=== PATIENT | male | born 1970 | race Caucasian/White ===

== ENCOUNTER 2022-12-09 16:56 | Outpatient (REF) | payer SELFPAY ==
[2022-12-09 21:41] LABS: HCT 43.4 % (40.0-50.0); HGB 14.8 g/dL (13.5-17.5); MCH 33.4 pg (27.0-33.0); MCHC 34.1 % (32.0-36.0); MCV 98 fL (80-95); MPV 9.8 fL (8.0-11.0); Platelet Count 471 10^3/uL (130-400); RBC 4.43 10^6/uL (4.36-5.78); RDW 12.6 % (11.8-14.1); RDW-SD 46.1 fL; WBC 10.97 10^3/uL (4.4-10.8)
[2022-12-09 21:55] LABS: Hemoglobin A1C 5.6 % (<5.7)
[2022-12-09 22:04] LABS: ALT 30 U/L (16-63); AST 23 U/L (15-37); Albumin 3.7 g/dL (3.4-5.0); Alkaline Phosphatase 91 U/L (46-116); Anion Gap 7.6 mmol/L (3-11); BUN 14 mg/dL (7-18); Bilirubin, Total 0.6 mg/dL (0.2-1.0); CO2 27.4 mmol/L (21.0-32.0); CREATININE 1.1 mg/dL (0.70-1.30); Calcium 8.9 mg/dL (8.5-10.1); Calculated LDL 93 mg/dL (<100); Chloride 106 mmol/L (98-107); Cholesterol 185 mg/dL (<200); Estimated GFR 81.28 (mL/min/1.73m2); Glucose 102 mg/dL (74-106); HDL Cholesterol 67 mg/dL (40-60); Potassium 4.5 mmol/L (3.5-5.1); Sodium 141 mmol/L (136-145); TSH 0.65 uIU/mL (0.36-3.74); Total Protein 7.3 g/dL (6.4-8.2); Triglyceride 126 mg/dL (<150)
== END 2022-12-09 16:57 | disposition home or self-care (01) ==
LOC: NCHCN 16:56
PROVIDERS: Visit Provider Nurse Practitioner Family
DX: Z00.00 Encounter for general adult medical examination without abnormal findings (principal); Z13.29 Encounter for screening for other suspected endocrine disorder; Z13.1 Encounter for screening for diabetes mellitus; Z13.0 Encounter for screening for diseases of the blood and blood-forming organs and certain disorders involving the immune mechanism; Z13.228 Encounter for screening for other metabolic disorders; Z13.220 Encounter for screening for lipoid disorders
CPT/HCPCS: 80053; 80061; 85027; 83036; 84443